=== PATIENT | female | born 1985 | race Two or more races ===

== ENCOUNTER 2017-07-28 21:13 | Inpatient (IN) | payer OTHER ==
[~2017-07-28] VITALS: Ht 167.6 cm; Wt 2.7 kg
[~2017-07-28 21:13] MED LIST: CRINONE1.125 G1; FOLTX TABLET1 EACH
[2017-07-29] MEDS ORDERED: PRENATAL 19 TA1 EACH PO (00:59)
[2017-08-01] MEDS ORDERED: OBSTETRIX ONE1 EACH PO (09:22)
[2017-08-01] MEDS ORDERED: NAPR500T14 PO (09:22)
[2017-08-01] MEDS ORDERED: OXYC1TAB9 PO (09:22)
[2017-08-01] MEDS ORDERED: FERROUS SULFAT325 M1 PO (09:22)
== END 2017-08-01 12:04 | DRG 765 ==
LOC: OB/GYN 21:13 → LDR 21:13 → OB/GYN 07-30 02:51
PROVIDERS: Specialist
PROC: 10907ZC Drainage of Amniotic Fluid, Therapeutic from Products of Conception, Via Natural or Artificial Opening (ICD-10-PCS; 2017-07-29)
PROC: 3E033VJ Introduction of Other Hormone into Peripheral Vein, Percutaneous Approach (ICD-10-PCS; 2017-07-29)
PROC: 4A1HXCZ Monitoring of Products of Conception, Cardiac Rate, External Approach (ICD-10-PCS; 2017-07-29)
PROC: 10D00Z1 Extraction of Products of Conception, Low, Open Approach (ICD-10-PCS; principal; 2017-07-29 18:00)
DX: O62.0 Primary inadequate contractions (principal); O99.12 Other diseases of the blood and blood-forming organs and certain disorders involving the immune mechanism complicating childbirth; O41.03X2 Oligohydramnios, third trimester, fetus 2; Z3A.37 37 weeks gestation of pregnancy; Z37.2 Twins, both liveborn; O30.043 Twin pregnancy, dichorionic/diamniotic, third trimester